=== PATIENT | female | born 1950 | race Two or more races ===

== ENCOUNTER 2018-12-28 12:31 | Emergency (ER) | payer SELFPAY ==
[~2018-12-28] VITALS: Ht 170.2 cm; Wt 62.6 kg
[~2018-12-28 12:31] MED LIST: NKM
[2018-12-28] MEDS ORDERED: Tetanus/Diptheria/Pertussis IM ONE (12:45)
[2018-12-28] MEDS ORDERED: Bacitracin Oint UD TOPIC ONE (12:45)
[2018-12-28 12:49] VITALS: BP 118/77
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
[2018-12-28] MEDS ORDERED: TYLENOL EXTRA500 MG ORAL (13:07)
[2018-12-28] MEDS ORDERED: BACITRACIN-P28.35 GM TP (13:07)
[2018-12-28 13:45] VITALS: BP 118/77
--- NOTE | 2018-12-28 13:46 | NUR ---
ER DISCHARGE NOTE:abrasion was cleaned bacitricin applied with bandaid Patient is cleared to be discharged per ERMD, pt is aox4, on room air, with stable vital signs. pt was given dc and prescription instructions, pt was able to verbalize understanding, pt is able to ambulate with steady gait. pt took all belongings.
== END 2018-12-28 13:25 | disposition home or self-care (01) ==
LOC: EDBD 12:31 → EMR 13:25
DX: S70.11XA Contusion of right thigh, initial encounter (principal); S80.02XA Contusion of left knee, initial encounter; S80.212A Abrasion, left knee, initial encounter; V03.10XA Pedestrian on foot injured in collision with car, pick-up truck or van in traffic accident, initial encounter; Y92.410 Unspecified street and highway as the place of occurrence of the external cause; Z23 Encounter for immunization
CPT/HCPCS: 90471; 90715; 99282